=== PATIENT | male | born 1935 | race Hispanic/Latino ===

== ENCOUNTER 2018-09-21 07:58 | Day surgery (SDC) | payer MEDICARE ==
[~2018-09-21] VITALS: Ht 167.6 cm; Wt 77.1 kg
[~2018-09-21 07:58] MED LIST: ASPI-1197 PO; ATOR20TA65 PO; CARB1TAB41 PO; CYCL30DR OU; DABI75CA3 PO; ESCI10TA54 PO; FENO54TA6 PO; FURO40TA5 PO; INSU3INS5 SQ; ISOS60TA4 PO; LAMO100T13 PO; LEVO88TA7 PO; LOSA50TA64 PO; METO-409 PO; NITR0.4T SL; OMEG1CAP43 PO; OMEP40CA37 PO; SODIUM CHLORIDE 0.9% 1000ML 1,000 ML IV ONE
[2018-09-21 10:15] VITALS: BP 142/71
[2018-09-21] MEDS ORDERED: CLOP75TA32 PO (10:46)
[2018-09-21] MEDS ORDERED: DONE10TA36 PO (10:46)
[2018-09-21] MEDS ORDERED: INSU100I35 SQ ×2 (10:46)
[2018-09-21] MEDS ORDERED: PROPOFOL 10 MG/ML 20ML VIAL IV ONE (12:16)
[2018-09-21 12:25] VITALS: BP 78/33
[2018-09-21 12:26] VITALS: BP 104/56
[2018-09-21 12:30] VITALS: BP 106/57
[2018-09-21 12:35] VITALS: BP 108/62
[2018-09-21 12:40] VITALS: BP 113/67
== END 2018-09-21 12:55 | disposition home or self-care (01) ==
LOC: DAH 07:58 → ENDO 07:58
PROVIDERS: ATTEND Internal Medicine
DX: D12.2 Benign neoplasm of ascending colon (principal); D12.3 Benign neoplasm of transverse colon; K63.5 Polyp of colon; D12.5 Benign neoplasm of sigmoid colon; K57.30 Diverticulosis of large intestine without perforation or abscess without bleeding; K64.0 First degree hemorrhoids; K63.3 Ulcer of intestine; Z86.010 Personal history of colon polyps; K21.9 Gastro-esophageal reflux disease without esophagitis; E11.9 Type 2 diabetes mellitus without complications; K59.00 Constipation, unspecified; K64.9 Unspecified hemorrhoids; I25.10 Atherosclerotic heart disease of native coronary artery without angina pectoris; E78.5 Hyperlipidemia, unspecified; G40.909 Epilepsy, unspecified, not intractable, without status epilepticus; I10 Essential (primary) hypertension; I48.91 Unspecified atrial fibrillation; E03.9 Hypothyroidism, unspecified; Z95.0 Presence of cardiac pacemaker; Z85.038 Personal history of other malignant neoplasm of large intestine; Z85.46 Personal history of malignant neoplasm of prostate; Z98.890 Other specified postprocedural states; Z90.49 Acquired absence of other specified parts of digestive tract
CPT/HCPCS: 45380; 45381; 45385; 82948 ×2; 88305; 93005; A4606; J2704; J7030

== ENCOUNTER → 2018-11-07 | Outpatient (CLI) | payer MEDICARE ==
[~2018-11-07] MED LIST changes: -ASPI-1197 PO; -ATOR20TA65 PO; +CLOP75TA32 PO; -CYCL30DR OU; +DONE10TA36 PO; -FENO54TA6 PO; +INSU100I35 SQ; -INSU3INS5 SQ; -ISOS60TA4 PO; -LOSA50TA64 PO; -OMEG1CAP43 PO; -SODIUM CHLORIDE 0.9% 1000ML 1,000 ML IV ONE
== END | disposition home or self-care (01) ==
LOC: RAH 13:40
PROVIDERS: ATTEND Internal Medicine Cardiovascular Disease
DX: J84.10 Pulmonary fibrosis, unspecified (principal); I25.10 Atherosclerotic heart disease of native coronary artery without angina pectoris; Z95.0 Presence of cardiac pacemaker; Z90.49 Acquired absence of other specified parts of digestive tract
CPT/HCPCS: 71250

== ENCOUNTER → 2019-09-16 | Outpatient (CLI) | payer MEDICARE ==
[~2019-09-16] MED LIST changes: -LAMO100T13 PO; +LAMO100T16 PO; +OMEP40CA13 PO; -OMEP40CA37 PO
== END | disposition home or self-care (01) ==
LOC: RAH 13:34
PROVIDERS: ATTEND Physical Medicine & Rehabilitation
DX: I67.82 Cerebral ischemia (principal); M54.81 Occipital neuralgia; G31.89 Other specified degenerative diseases of nervous system; J98.11 Atelectasis; E03.4 Atrophy of thyroid (acquired); D71 Functional disorders of polymorphonuclear neutrophils
CPT/HCPCS: 70450; 70490

== ENCOUNTER → 2020-03-27 | Outpatient (CLI) | payer MEDICARE | END | disposition home or self-care (01) | LOC: RAH 13:17 | PROVIDERS: ATTEND Internal Medicine Cardiovascular Disease | DX: D71 Functional disorders of polymorphonuclear neutrophils (principal); J98.11 Atelectasis; J84.10 Pulmonary fibrosis, unspecified; J98.4 Other disorders of lung; M84.48XA Pathological fracture, other site, initial encounter for fracture; M95.4 Acquired deformity of chest and rib; M47.814 Spondylosis without myelopathy or radiculopathy, thoracic region; R91.8 Other nonspecific abnormal finding of lung field; D73.89 Other diseases of spleen; Z90.49 Acquired absence of other specified parts of digestive tract; Z95.0 Presence of cardiac pacemaker | CPT/HCPCS: 71250 ==

== ENCOUNTER → 2020-08-18 | Outpatient (CLI) | payer MEDICARE ==
[~2020-08-18] MED LIST changes: +ESCI-8 PO; -ESCI10TA54 PO
== END | disposition home or self-care (01) ==
LOC: RAH 13:46
PROVIDERS: ATTEND Internal Medicine Cardiovascular Disease
DX: I25.10 Atherosclerotic heart disease of native coronary artery without angina pectoris (principal); I70.213 Atherosclerosis of native arteries of extremities with intermittent claudication, bilateral legs
CPT/HCPCS: 93925

== ENCOUNTER 2020-10-12 07:27 | Day surgery (SDC) | payer MEDICARE ==
[2020-10-08 10:35] VITALS: BP 117/66
[2020-10-08 14:37] LABS: BASOPHILS % (AUTO) 0.4 % (0.0-5.0); EOSINOPHILS % (AUTO) 2.1 % (0.0-8.0); HEMATOCRIT 42.5 % (42-54); LYMPHOCYTES % (AUTO) 18.5 % (21.0-51.0); MEAN CORPUSCULAR HEMOGLOBIN 30.3 pg (27.0-33.0); MEAN CORPUSCULAR HGB CONC 33.2 g/dL (32.0-36.0); MEAN CORPUSCULAR VOLUME 91.4 fL (79-99); MONOCYTES % (AUTO) 5.4 % (3.0-13.0); NEUTROPHILS % (AUTO) 73.1 % (40.0-77.0); PLATELET COUNT (AUTO) 202 K/uL (130-400); RED BLOOD CELL COUNT(AUTO) 4.65 MIL/uL (4.50-6.20); WHITE BLOOD COUNT (AUTO) 11.2 K/uL (4.8-10.8)
[2020-10-08 14:48] LABS: INR 1.05 (0.85-1.15); PROTHROMBIN TIME 11.4 SEC (9.6-11.6)
[2020-10-08 14:49] LABS: PARTIAL THROMBOPLASTIN TIME 37.7 SEC (26.3-35.5)
[2020-10-08 14:55] LABS: CREATININE 1.7 mg/dL (0.5-1.5); POTASSIUM 3.7 mmol/L (3.5-5.1)
[~2020-10-12] VITALS: Ht 160 cm; Wt 71.7 kg
[2020-10-12] VITALS (9 sets, daily range): BP systolic 104–147; BP diastolic 64–89
[~2020-10-12 07:27] MED LIST changes: -OMEP40CA13 PO; +OMEP40CA21 PO
[2020-10-12 08:17] LABS: HEMATOCRIT 41.9 % (42-54); MEAN CORPUSCULAR HEMOGLOBIN 29.6 pg (27.0-33.0); MEAN CORPUSCULAR HGB CONC 32.7 g/dL (32.0-36.0); MEAN CORPUSCULAR VOLUME 90.5 fL (79-99); PLATELET COUNT (AUTO) 234 K/uL (130-400); RED BLOOD CELL COUNT(AUTO) 4.63 MIL/uL (4.50-6.20); WHITE BLOOD COUNT (AUTO) 9.9 K/uL (4.8-10.8)
[2020-10-12] MEDS ORDERED: NACL 0.9% 1000ML 1,000 ML IV ONE (08:33)
[2020-10-12] MEDS ORDERED: CEFAZOLIN SODIUM 1 GM VIAL ONE (08:34)
[2020-10-12] MEDS ORDERED: MIDAZOLAM HCL 1 MG/ML 2ML VIAL ONE ×2 (08:34→09:42)
[2020-10-12] MEDS ORDERED: BUPIVACAINE/PF 0.25% 30ML VIAL IJ ONE (08:34)
[2020-10-12] MEDS ORDERED: MEPERIDINE-PF 25 MG/ML SYG ONE ×2 (08:34→09:42)
[2020-10-12] MEDS ORDERED: LIDOCAINE HCL 1% MDV 50ML VIAL ONE (08:35)
[2020-10-12 08:57] LABS: EOSINOPHILS % (MANUAL) 2 % (1-6); LYMPHOCYTES % (MANUAL) 26 % (22-44); MAN.DIFF COMMENT-IMPRESSION MANUAL DIFFERENTIAL; MONOCYTES % (MANUAL) 4 % (2-9); SEGMENTED NEUTROPHILS % 68 % (40-70)
[2020-10-12 08:58] LABS: PLATELET MORPHOLOGY COMMENT ADEQUATE
[2020-10-12] MEDS ORDERED: EZET10TA48 PO (09:02)
[2020-10-12] MEDS ORDERED: ATOR20TA65 PO (09:02)
[2020-10-12] MEDS ORDERED: CHOL-34 PO (09:02)
[2020-10-12] MEDS ORDERED: OXYB10TA30 PO (09:06)
[2020-10-12] MEDS ORDERED: SPIR25TA6 PO (09:06)
[2020-10-12] MEDS ORDERED: ESCI-8 PO (09:06)
[2020-10-12] MEDS ORDERED: SOLI10TA7 PO (09:06)
[2020-10-12] MEDS ORDERED: METO-409 PO (09:06)
[2020-10-12] MEDS ORDERED: MEMA5TAB42 PO (09:06)
[2020-10-12] MEDS ORDERED: FOLI1TAB85 PO (09:07)
[2020-10-12] MEDS ORDERED: TRAM50TA4 PO (10:24)
[2020-10-12] MEDS ORDERED: TRAMADOL HCL 50 MG TABLET PO PRN (10:30)
== END 2020-10-12 14:28 | disposition home or self-care (01) ==
LOC: DAH 07:27
PROVIDERS: ATTEND Internal Medicine Cardiovascular Disease
DX: Z45.02 Encounter for adjustment and management of automatic implantable cardiac defibrillator (principal); Z20.822 Contact with and (suspected) exposure to COVID-19; I25.5 Ischemic cardiomyopathy; I44.2 Atrioventricular block, complete; I50.42 Chronic combined systolic (congestive) and diastolic (congestive) heart failure; I48.21 Permanent atrial fibrillation; E11.51 Type 2 diabetes mellitus with diabetic peripheral angiopathy without gangrene; I25.10 Atherosclerotic heart disease of native coronary artery without angina pectoris; G47.30 Sleep apnea, unspecified; Z90.49 Acquired absence of other specified parts of digestive tract; Z98.890 Other specified postprocedural states; Z82.49 Family history of ischemic heart disease and other diseases of the circulatory system; Z80.0 Family history of malignant neoplasm of digestive organs; Z90.79 Acquired absence of other genital organ(s); Z79.01 Long term (current) use of anticoagulants; Z79.899 Other long term (current) drug therapy; Z95.5 Presence of coronary angioplasty implant and graft
CPT/HCPCS: 33264; 36415 ×2; 80048; 82948 ×2; 85025 ×2; 85610; 85730; A4215; A4216; A4221; A4222; A4223 ×3; A4606; A4663; C1882; J0690; J2175 ×2; J2250; J3490 ×2; J7030; 99156; 99157